=== PATIENT | male | born 1950 | race Caucasian/White ===

== ENCOUNTER 2016-07-14 20:32 | Emergency (ER) | payer OTHER ==
--- NOTE | 2016-07-14 22:07 | ED NURSING NOTES ---
Clinical Report - Nurses [facility] [place] [address] 07/14/2016 20:33 [id number] Triage time 21:Jul 14 2016. Acuity: LEVEL 3. Chief Complaint: (Facial pain, flank pain, congestion). SEPSIS SCREEN: Sepsis Screen: negative. Negative (no infection suspected/documented). ZULAY COMA SCORE: Zulay Coma Scale: 15- eyes open spontaneously (4); best verbal response- oriented x 4 (5); best motor response- obeys commands (6). --21:08 Carri Mclaughlin 21:01 07/14/16. BP: 150/92. HR: 72. RR: 18. O2 saturation: 98% on room air. Temp: 97.8 F (oral). Pain level now: 03/27. --21:08 Carri Mclaughlin. Weight: 99.7 kg stated. Height/Length: 73 inches Per Patient. BMI: 29. --21:06 Carri Mclaughlin. Medications None. --21:07 Carri Mclaughlin. Allergies Vicodin. --21:07 Carri Mclaughlin. Medication/allergy information source: the patient. --21:08 Carri Mclaughlin. History Arrived by private vehicle. Historian: patient. Accompanied by family. Primary physician (none). Onset. (1 weeks). ( Patient reports right sided facial pain, he does not know if its in his mouth or throat. He reports flank pain on his left side. He reports congestion and states he has had "the crud going around". He reports he feels terrible.). PAST MEDICAL HX: Immunizations: up-to-date. SOCIAL HX: Heavy tobacco smoker- 1 pack per day. History of drug use: marijuana. No alcohol use. No infectious disease exposure. ABUSE ASSESSMENT: No report of abuse. FALL RISK ASSESSMENT: Fall risk assessment completed. No fall risk identified. NUTRITIONAL RISK ASSESSMENT: The nutritional risk assessment revealed no deficiencies. FUNCTIONAL ASSESSMENT: Functional assessment: no impairments noted. LEARNING NEEDS ASSESSMENT: The learning needs assessment revealed no barriers. SKIN INTEGRITY ASSESSMENT: Skin integrity risk assessment completed. No skin integrity risk identified. --21: Carri Mclaughlin. PROBLEMS: Degenerative Joint Disease. Arthritis. Hypertension. --21: Carri Mclaughlin. ADDITIONAL SURGERIES: Adenoidectomy. Right foot. Right hand. Tonsillectomy. --21: Carri Mclaughlin. Interventions ID band on patient. To treatment room. --21: Carri Mclaughlin. PHYSICAL ASSESSMENT ( Extensive dental decay and broken teeth b). GENERAL / NEURO / PSYCH: Alert. Oriented X 4. Appears in no acute distress. HEENT: No facial asymmetry noted. Mucous membranes are pink. RESPIRATORY: Respirations not labored. SKIN: Skin is warm and dry. --21: Carri Mclaughlin. NURSING PROGRESS NOTES 21:07/14/16. The initial plan of care for this patient includes an assessment with efforts to address the presence of pain. This plan of care was discussed with the patient. Patient gowned. Reassurance given. Patient identifiers checked. Call light placed in reach. Side rails up x 1. Bed placed in lowest position. Brakes of bed on. --21:20 Carol Owens R.N. 22:07/14/2016 Oxycodone-APAP (Oxycodone-Acetaminophen) PO 5/325 mg Tablets 2 tab given. Allergies verified, confirmed 5 rights and sedative warning given to the patient and patient's family. --22:24 Carol Owens R.N. 22:20 07/14/2016 PEN-VEE K (Penicillin V Potassium) PO Tablets 500 mg given. Allergies verified and confirmed 5 rights. --22:24 Carol Owens R.N. 22:07/14/2016 Flexeril (Cyclobenzaprine HCl) PO Tablets 10 mg given. Allergies verified and confirmed 5 rights. --22:24 Carol Owens R.N. DISPOSITION / DISCHARGE 22:26 07/14/16. Condition at departure: improved and stable. The goals identified in the patient's plan of care were met. No learning barriers present. Discharge instructions provided and reviewed with the patient. Reviewed medication(s) side effects, precautions, dosing and course information. Prescription(s) given to the patient. Reviewed referral to a dentist and primary care physician for followup. Patient and spouse verbalized understanding. Written instructions provided in Ghanaian. The patient was discharged home and accompanied by spouse. He left the Emergency Department ambulatory and via private vehicle. Patient driving. --22:26 Carol Owens R.N. 22:25 07/14/16. BP: 146/80. HR: 88. RR: 16. O2 saturation: 100%. Temp: 98.5 F. Pain level now: 01/25. 21:01 07/14/16. BP: 150/92. HR: 72. RR: 18. O2 saturation: 98% on room air. Temp: 97.8 F (oral). Pain level now: 03/27. --22:26 Carol Owens R.N. Departure time: :Jul 14 2016. --22:26 Carol Owens R.N. Locked/Released at 07/14/2016 22:51 by Carol Owens R.N.
--- NOTE | 2016-07-14 22:07 | ED CLINICAL REPORT ---
Clinical Report - Physicians/Mid Levels [facility] [address] [place] [address] 07/14/2016 20:33 Patient: CARLEE NASH Time Seen: 21:53 Jul 14 2016. Arrived- By private vehicle. Historian- patient. CPT: ER phys charges level 3 (#932485). HISTORY OF PRESENT ILLNESS Chief Complaint: SORE THROAT and DENTAL PAIN. flank pain. 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 (1 weeks). ( Patient reports right sided facial pain, he does not know if its in his mouth or throat. He reports flank pain on his left side. He reports congestion and states he has had "the crud going around". He reports he feels terrible.). and is still present. Pain described as moderate. The patient has had jaw pain. Similar symptoms previously: None. Recent medical care: Not recently seen/assessed. REVIEW OF SYSTEMS No fever, cough, difficulty breathing, chest pain or nausea. No diarrhea, abdominal pain, difficulty with urination, fainting episodes or skin rash. No enlarged lymph nodes or vomiting. low back also hurts on the left lower lumbar area. Return for the last couple of days and hurts primarily in trying to move and get up out of bed. All systems otherwise negative, except as recorded above. PAST HISTORY Arthritis. Prior Injury, Same Area. Dental Caries. Tendonitis. Bronchitis. Fall. Contusion. Sprain. Tetanus Status. Additional Surgeries: Adenoidectomy. Right foot. Right hand. Tonsillectomy. Medications: None. Allergies: Vicodin. SOCIAL HISTORY Heavy tobacco smoker (cigarette)- less than 1 pack per day. History of drug use: marijuana. ADDITIONAL NOTES The nursing notes have been reviewed. PHYSICAL EXAM Vital Signs: 07/14/2016 21:01 BP: 150/92. HR: 72. RR: 18. O2 saturation: 98%. Temp: 97.8 F. Pain level now: 10/10. Appearance: Alert. Patient in mild distress. Head: Normal external inspection. No mandibular swelling or maxillary swelling. Eyes: Pupils equal, round and reactive to light. Conjunctivae and eyelids normal. ENT: Severe dental tenderness of a single tooth (lower right second molar). Ears normal. Nose normal. Pharynx normal. Lips normal. Gums normal. Uvula midline. Neck: Normal inspection. Trachea midline. No adenopathy. Neck supple. No lymphadenopathy or meningeal signs. CVS: Normal heart rate and rhythm. Heart sounds normal. Pulses normal. No cardiac murmur. Respiratory: No respiratory distress. Breath sounds normal. Chest nontender. Abdomen: Soft and nontender. Skin: Normal skin color. No rash. Extremities: Extremities nontender. Neuro: Oriented X 3. No motor deficit. No sensory deficit. Reflexes normal. PROGRESS AND PROCEDURES Patient/family counseled. Disposition: Discharged. Condition: stable. CLINICAL IMPRESSION Dental caries (localized) Acute and chronic lumbar back pain associated with degenerative disc disease of the lumbar spine. Motor deficit present. (Chronic weakness left leg.). No radiculopathy. INSTRUCTIONS Warnings: Further evaluation is necessary. GENERAL WARNINGS: Return or contact your physician immediately if your condition worsens or changes unexpectedly, if not improving as expected, or if other problems arise. Prescription Medications: Penicillin V 500mg: take 1 tab orally every 6 hours for 10 days. Dispense forty (40). No refill Oxycodone/APAP 5 mg/325 mg: take 1-2 tablets orally every 4 hours as needed for pain. Dispense twenty-five (25). No refill. Ibuprofen 800 mg tablets: take 1 tablet orally every 8 hours as needed for pain. Dispense thirty (30). No refills. Flexeril 10 mg: Take 1 orally every 8 hours as needed for muscle spasm. Dispense twenty (20). No refills. Substitution is permissible. Follow-up: Follow up with a dentist. Call for the next available appointment. Understanding of the discharge instructions verbalized by patient. Follow-up with: Ashkan Del Valle MD, [facility], , [facility], [address] [place] [address] Follow up in one week. Call for an appointment. (Electronically signed by Mina Zazueta MD 07/17/2016 10:31)
--- NOTE | 2016-07-14 22:07 | ED CLINICAL REPORT ---
Clinical Report - Physicians/Mid Levels [facility] [address] [place] [address] 07/14/2016 20:33 Patient: CARLEE NASH Time Seen: 21:53 Jul 14 2016. Arrived- By private vehicle. Historian- patient. CPT: ER phys charges level 3 (#[id number]). HISTORY OF PRESENT ILLNESS Chief Complaint: SORE THROAT and DENTAL PAIN. flank pain. 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 (1 weeks). ( Patient reports right sided facial pain, he does not know if its in his mouth or throat. He reports flank pain on his left side. He reports congestion and states he has had "the crud going around". He reports he feels terrible.). and is still present. Pain described as moderate. The patient has had jaw pain. Similar symptoms previously: None. Recent medical care: Not recently seen/assessed. REVIEW OF SYSTEMS No fever, cough, difficulty breathing, chest pain or nausea. No diarrhea, abdominal pain, difficulty with urination, fainting episodes or skin rash. No enlarged lymph nodes or vomiting. low back also hurts on the left lower lumbar area. Return for the last couple of days and hurts primarily in trying to move and get up out of bed. All systems otherwise negative, except as recorded above. PAST HISTORY Arthritis. Prior Injury, Same Area. Dental Caries. Tendonitis. Bronchitis. Fall. Contusion. Sprain. Tetanus Status. Additional Surgeries: Adenoidectomy. Right foot. Right hand. Tonsillectomy. Medications: None. Allergies: Vicodin. SOCIAL HISTORY Heavy tobacco smoker (cigarette)- less than 1 pack per day. History of drug use: marijuana. ADDITIONAL NOTES The nursing notes have been reviewed. PHYSICAL EXAM Vital Signs: 07/14/2016 21:01 BP: 150/92. HR: 72. RR: 18. O2 saturation: 98%. Temp: 97.8 F. Pain level now: 10/10. Appearance: Alert. Patient in mild distress. Head: Normal external inspection. No mandibular swelling or maxillary swelling. Eyes: Pupils equal, round and reactive to light. Conjunctivae and eyelids normal. ENT: Severe dental tenderness of a single tooth (lower right second molar). Ears normal. Nose normal. Pharynx normal. Lips normal. Gums normal. Uvula midline. Neck: Normal inspection. Trachea midline. No adenopathy. Neck supple. No lymphadenopathy or meningeal signs. CVS: Normal heart rate and rhythm. Heart sounds normal. Pulses normal. No cardiac murmur. Respiratory: No respiratory distress. Breath sounds normal. Chest nontender. Abdomen: Soft and nontender. Skin: Normal skin color. No rash. Extremities: Extremities nontender. Neuro: Oriented X 3. No motor deficit. No sensory deficit. Reflexes normal. PROGRESS AND PROCEDURES Patient/family counseled. Disposition: Discharged. Condition: stable. CLINICAL IMPRESSION Dental caries (localized) Acute and chronic lumbar back pain associated with degenerative disc disease of the lumbar spine. Motor deficit present. (Chronic weakness left leg.). No radiculopathy. INSTRUCTIONS Warnings: Further evaluation is necessary. GENERAL WARNINGS: Return or contact your physician immediately if your condition worsens or changes unexpectedly, if not improving as expected, or if other problems arise. Prescription Medications: Penicillin V 500mg: take 1 tab orally every 6 hours for 10 days. Dispense forty (40). No refill Oxycodone/APAP 5 mg/325 mg: take 1-2 tablets orally every 4 hours as needed for pain. Dispense twenty-five (25). No refill. Ibuprofen 800 mg tablets: take 1 tablet orally every 8 hours as needed for pain. Dispense thirty (30). No refills. Flexeril 10 mg: Take 1 orally every 8 hours as needed for muscle spasm. Dispense twenty (20). No refills. Substitution is permissible. Follow-up: Follow up with a dentist. Call for the next available appointment. Understanding of the discharge instructions verbalized by patient. Follow-up with: Ashkan Del Valle MD, [facility], , [facility], [address] [place] [address] Follow up in one week. Call for an appointment. (Electronically signed by Mina Zazueta MD 07/17/2016 10:31)
--- NOTE | 2016-07-17 10:31 | ED ORDER SUMMARY ---
..... Patient: CARLEE NASH OrderSheet [facility] VisitID: [id number] [address] [place] [address] 65y, M Registration Date/Time: 07/14/2016 ORDER SHEET Weight: 99.7 kg (stated) Allergies: Vicodin GENERAL ORDERS: MEDICATION ORDERS: Oxycodone-APAP PO 10/650 mg (NOW) (22:08 07/14/2016 Sedrick BELTRAN) (22:24 EIterrell R.N.) Pen-Vee K PO 500 mg (NOW) (22:08 07/14/2016 Sedrick BELTRAN) (22:24 EIterrell R.N.) Flexeril PO 10 mg (NOW) (22:08 07/14/2016 Sedrick BELTRAN) (22:24 EIjennerkalpesh R.N.) IV FLUIDS: ORDER SHEET NOTES: [Electronically signed by Carol Owens R.N. (22:51 07/14/2016)] [Electronically signed by Mina Zazueta MD (10:31 07/17/2016)] [Electronically locked/signed by Carol Owens R.N. (22:51 07/14/2016)]
--- NOTE | 2016-07-17 10:31 | ED MED RECONCILIATION SUMMARY ---
Patient: CARLEE NASH Medication Reconciliation Report [facility] VisitID: [id number] [address] [place] [address] 65y, M Registration Date/Time: 07/14/2016 Weight: 99.7 kg Height/Length: 73 in. BMI: 29.0 ALLERGIES: Vicodin The patient's Home Medications are listed below: NONE. The source(s) of the original Home Medication information: patient The following Medications were given to the patient in the Emergency Department: Oxycodone-APAP [PO] PO 2 tab, administered: 07/14/2016 10:20:00 PM PEN-VEE K [PO] PO 500 mg, administered: 07/14/2016 10:20:00 PM Flexeril [PO] PO 10 mg, administered: 07/14/2016 10:20:00 PM The following Medications were prescribed to the patient: Penicillin V 500mg: take 1 tab orally every 6 hours for 10 days. Dispense forty (40). No refill -- Mina Zazueta MD Oxycodone/APAP 5 mg/325 mg: take 1-2 tablets orally every 4 hours as needed for pain. Dispense twenty-five (25). No refill. -- Mina Zazueta MD Ibuprofen 800 mg tablets: take 1 tablet orally every 8 hours as needed for pain. Dispense thirty (30). No refills. -- Mina Zazueta MD Flexeril 10 mg: Take 1 orally every 8 hours as needed for muscle spasm. Dispense twenty (20). No refills. Substitution is permissible. -- Mina Zazueta MD
--- NOTE | 2016-07-17 10:31 | ED MAR SUMMARY ---
..... Medication Administration Record [facility] [address] [place] [address] Patient: CARLEE NASH Visit ID: [id number] 65y, M Weight: 99.7 kg Height/Length: 73 in BMI: 29 ALLERGIES: Vicodin Given 22:07/14/2016 Carol Owens R.N. Medication Administered: OXYCODONE-APAP [PO] (OXYCODONE-ACETAMINOPHEN), Dose: 2 tab 5/325 mg Tablets PO. Medication Ordered: Oxycodone-APAP PO 10/650 mg (NOW). Given 22:07/14/2016 Carol Owens R.N. Medication Administered: PEN-VEE K [PO] (PENICILLIN V POTASSIUM), Dose: 500 mg Tablets PO. Medication Ordered: Pen-Vee K PO 500 mg (NOW). Given 22:07/14/2016 Carol Owens R.N. Medication Administered: FLEXERIL [PO] (CYCLOBENZAPRINE HCL), Dose: 10 mg Tablets PO. Medication Ordered: Flexeril PO 10 mg (NOW).
--- NOTE | 2016-07-17 10:31 | ED DISCHARGE INSTRUCTIONS ---
Patient: CARLEE NASH General Instructions [facility] VisitID: [id number] [place] [address] 65y, M Registration Date/Time: 07/14/2016 Dental caries (localized) Acute and chronic lumbar back pain associated with degenerative disc disease of the lumbar spine. Motor deficit present. (Chronic weakness left leg.). No radiculopathy. INSTRUCTIONS Warnings: Further evaluation is necessary. GENERAL WARNINGS: Return or contact your physician immediately if your condition worsens or changes unexpectedly, if not improving as expected, or if other problems arise. Prescription Medications: Penicillin V 500mg: take 1 tab orally every 6 hours for 10 days. Dispense forty (40). No refill Oxycodone/APAP 5 mg/325 mg: take 1-2 tablets orally every 4 hours as needed for pain. Dispense twenty-five (25). No refill. Ibuprofen 800 mg tablets: take 1 tablet orally every 8 hours as needed for pain. Dispense thirty (30). No refills. Flexeril 10 mg: Take 1 orally every 8 hours as needed for muscle spasm. Dispense twenty (20). No refills. Substitution is permissible. Follow-up: Follow up with a dentist. Call for the next available appointment. Understanding of the discharge instructions verbalized by patient. Follow-up with: Ashkan Del Valle MD, [facility], , [facility], [address] [place] [address] Follow up in one week. Call for an appointment. ADDITIONAL INFORMATION Dental Cavity A dental cavity is a pit or crater in the enamel surface of the tooth. This exposes the sensitive inner layer of the tooth and causes pain. If untreated, the cavity will get bigger and may cause an infection or abscess in the root of the tooth. An infection in the tooth is a much more serious problem and may require a root canal or removal of the entire tooth. The tooth pain may be made worse by drinking hot or cold fluids. It may spread from the tooth to the ear or jaw on the same side. Home Care: Avoid hot and cold foods, and liquids since your tooth may be sensitive to temperature changes. If your tooth is chipped or cracked, or if there is a large open cavity, apply OIL OF CLOVES (available snus-wqd-tjdymjl in drug stores) directly to the tooth to reduce pain. Some pharmacies carry an zatc-gxr-cathijb "toothache kit." This contains oil of cloves and a paste, which can be applied over the exposed tooth to decrease sensitivity. An ice pack on your jaw over the sore area may help to reduce pain. You may use acetaminophen (Tylenol) or ibuprofen (Motrin, Advil) to control pain, unless another pain medicine was prescribed. [ NOTE: If you have liver disease or ever had a stomach ulcer, talk with your doctor before using these medicines.] If you have signs of an infection, an antibiotic will be given. Take it as directed. Follow-Up with your dentist as directed. Although your pain may go away with the treatment given, only a dentist can fully evaluate and treat this problem to prevent further tooth damage. Get Prompt Medical Attention if any of the following occur: Redness or swelling of the face Pain worsens or spreads to the neck Fever over 100.5 F (38C) Unusual drowsiness; headache or stiff neck; weakness or fainting Pus drains from the tooth or gum Difficulty swallowing or breathing Dental Abscess A dental abscess is an infection of the tooth socket. It often starts with a crack or cavity in the tooth. A pocket of pus forms between the tooth and the bone. The infection causes pain and swelling of the gum, cheek or jaw. The pain is often made worse by drinking hot or cold fluids, or biting on hard foods. Pain may be felt in the facial sinus or in the ear. A severe infection can interfere with swallowing and breathing. In the emergency department or clinic, you will be started on an antibiotic. However, final treatment requires drainage of the pus. This can be done by removing the tooth or performing a root canal. A root canal is done by an oral surgeon and involves drilling an opening in the tooth to drain the pus. After the infection has healed, a crown is placed over the tooth. Home care The following guidelines will help you care for your abscess at home: Avoid hot and cold foods and liquids since your tooth may be sensitive to temperature changes. If your tooth is chipped or cracked, or if there is a large open cavity, applyoil of cloves(available jchf-wrw-tmfucea in drug stores) directly to the tooth to reduce pain. Some pharmacies carry an atav-nsz-sddhaas "toothache kit". This contains oil of cloves and a paste, which can be applied over the exposed tooth to decrease sensitivity. Apply an ice pack (ice cubes in a plastic bag, wrapped in a towel) over the injured area for 20 minutes every 12 hours the first day for pain relief. Continue this 34 times a day until the pain and swelling goes away. You may use acetaminophen or ibuprofen to control pain, unless another medicine was prescribed. If you have chronic liver or kidney disease or ever had a stomach ulcer or GI bleeding, talk with your doctor before using these medicines. An antibiotic will be prescribed. Take it as directed until completed, even if you are feeling better sooner. Follow-up care Follow up as directed with a dentist or oral surgeon. Even though your pain may improve with the treatment given today, only a dentist or oral surgeon can provide full treatment for this problem. When to seek medical care Get prompt medical attention or contact your doctor if any of the following occur: Your face or eyelid becomes swollen or red Pain worsens or spreads to the neck Fever over 100.4F (38.0C) Unusual drowsiness; headache or stiff neck; weakness, or fainting Pus drains from the gum or tooth Difficulty talking, swallowing or breathing Unable to open your mouth wide Dental Pain A crack or cavity in the tooth, which exposes the sensitive inner area of the tooth can cause tooth pain. An infection in the gum or the root of the tooth can cause pain and swelling. The pain is often made worse by drinking hot or cold fluids, or biting on hard foods. Pain may spread from the tooth to the ear or jaw on the same side. Home Care: Avoid hot and cold foods and liquids since your tooth may be sensitive to temperature changes. If your tooth is chipped or cracked, or if there is a large open cavity, apply OIL OF CLOVES (available llgk-cfa-ruzbacu in drug stores) directly to the tooth to reduce pain. Some pharmacies carry an nxha-vpp-elkctkr "toothache kit." This contains a paste, which can be applied over the exposed tooth to decrease sensitivity. A cold pack on your jaw over the sore area may help reduce pain. You may use acetaminophen (Tylenol) or ibuprofen (Motrin, Advil) to control pain, unless another medicine was prescribed. [ NOTE: If you have chronic liver or kidney disease or ever had a stomach ulcer or GI bleeding, talk with your doctor before using these medicines.] If you have signs of an infection, an antibiotic will be given. Take it as directed. Follow-Up as directed with a dentist. Your pain may go away with the treatment given. However, only a dentist can fully evaluate and treat the cause and prevent the pain from coming back again. TOOTHACHE IS A SIGN OF DISEASE IN YOUR TOOTH AND SHOULD BE EXAMINED AND TREATED BY A DENTIST. Get Prompt Medical Attention if any of the following occur: Your face becomes swollen or red Pain worsens or spreads to the neck Fever over 100.4 F (38.0 C) Unusual drowsiness; headache or stiff neck; weakness or fainting Pus drains from the tooth Difficulty swallowing or breathing Back Pain [Acute Or Chronic] Back pain is usually caused by an injury to the muscles or ligaments of the spine. Sometimes the disks that separate each bone in the spine may bulge and cause pain by pressing on a nearby nerve. Back pain may also appear after a sudden twisting/bending force (such as in a car accident), after a simple awkward movement, or lifting something heavy with poor body positioning. In either case, muscle spasm is often present and adds to the pain. Acute back pain usually gets better in one to two weeks. Back pain related to disk disease, arthritis in the spinal joints or spinal stenosis (narrowing of the spinal canal) can become chronic and last for months or years. Unless you had a physical injury (for example, a car accident or fall) X-rays are usually not ordered for the initial evaluation of back pain. If pain continues and does not respond to medical treatment, x-rays and other tests may be performed at a later time. Home Care: You may need to stay in bed the first few days. But, as soon as possible, begin sitting or walking to avoid problems with prolonged bed rest (muscle weakness, worsening back stiffness and pain, blood clots in the legs). When in bed, try to find a position of comfort. A firm mattress is best. Try lying flat on your back with pillows under your knees. You can also try lying on your side with your knees bent up towards your chest and a pillow between your knees. Avoid prolonged sitting. This puts more stress on the lower back than standing or walking. During the first two days after injury, apply an ICE PACK to the painful area for 20 minutes every 2-4 hours. This will reduce swelling and pain. HEAT (hot shower, hot bath or heating pad) works well for muscle spasm. You can start with ice, then switch to heat after two days. Some patients feel best alternating ice and heat treatments. Use the one method that feels the best to you. You may use acetaminophen (Tylenol) or ibuprofen (Motrin, Advil) to control pain, unless another pain medicine was prescribed. [NOTE: If you have chronic liver or kidney disease or ever had a stomach ulcer or GI bleeding, talk with your doctor before using these medicines.] Be aware of safe lifting methods and do not lift anything over 15 pounds until all the pain is gone. Follow Up with your doctor or this facility if your symptoms do not start to improve after one week. Physical therapy may be needed. [NOTE: If X-rays were taken, they will be reviewed by a radiologist. You will be notified of any new findings that may affect your care.] Get Prompt Medical Attention if any of the following occur: Pain becomes worse or spreads to your legs Weakness or numbness in one or both legs Loss of bowel or bladder control Numbness in the groin or genital area Oxycodone Hydrochloride, Acetaminophen Oral tablet What is this medicine? ACETAMINOPHEN; OXYCODONE (a set a KRISTINE debby fen; ox i KOE done) is a pain reliever. It is used to treat mild to moderate pain. How should I use this medicine? Take this medicine by mouth with a full glass of water. Follow the directions on the prescription label. Take your medicine at regular intervals. Do not take your medicine more often than directed. Talk to your granite polisher apprentice regarding the use of this medicine in children. Special care may be needed. Patients over 65 years old may have a stronger reaction and need a smaller dose. What side effects may I notice from receiving this medicine? Side effects that you should report to your doctor or health care analyst as soon as possible: allergic reactions like skin rash, itching or hives, swelling of the face, lips, or tongue breathing difficulties, wheezing confusion light headedness or fainting spells severe stomach pain yellowing of the skin or the whites of the eyes Side effects that usually do not require medical attention (report to your doctor or health care analyst if they continue or are bothersome): dizziness drowsiness nausea vomiting What may interact with this medicine? alcohol antihistamines barbiturates like amobarbital, butalbital, butabarbital, methohexital, pentobarbital, phenobarbital, thiopental, and secobarbital benztropine drugs for bladder problems like solifenacin, trospium, oxybutynin, tolterodine, hyoscyamine, and methscopolamine drugs for breathing problems like ipratropium and tiotropium drugs for certain stomach or intestine problems like propantheline, homatropine methylbromide, glycopyrrolate, atropine, belladonna, and dicyclomine general anesthetics like etomidate, ketamine, nitrous oxide, propofol, desflurane, enflurane, halothane, isoflurane, and sevoflurane medicines for depression, anxiety, or psychotic disturbances medicines for sleep muscle relaxants naltrexone narcotic medicines (opiates) for pain phenothiazines like perphenazine, thioridazine, chlorpromazine, mesoridazine, fluphenazine, prochlorperazine, promazine, and trifluoperazine scopolamine tramadol trihexyphenidyl What if I miss a dose? If you miss a dose, take it as soon as you can. If it is almost time for your next dose, take only that dose. Do not take double or extra doses. Where should I keep my medicine? Keep out of the reach of children. This medicine can be abused. Keep your medicine in a safe place to protect it from theft. Do not share this medicine with anyone. Selling or giving away this medicine is dangerous and against the law. Store at room temperature between 20 and 25 degrees C (68 and 77 degrees F). Keep container tightly closed. Protect from light. This medicine may cause accidental overdose and if it is taken by other adults, children, or pets. Flush any unused medicine down the toilet to reduce the chance of harm. Do not use the medicine after the expiration date. What should I tell my health care provider before I take this medicine? They need to know if you have any of these conditions: brain tumor Crohn's disease, inflammatory bowel disease, or ulcerative colitis drink more than 3 alcohol containing drinks per day drug abuse or addiction head injury heart or circulation problems kidney disease or problems going to the bathroom liver disease lung disease, asthma, or breathing problems an unusual or allergic reaction to acetaminophen, oxycodone, other opioid analgesics, other medicines, foods, dyes, or preservatives or trying to get breast-feeding What should I watch for while using this medicine? Tell your doctor or health care analyst if your pain does not go away, if it gets worse, or if you have new or a different type of pain. You may develop tolerance to the medicine. Tolerance means that you will need a higher dose of the medication for pain relief. Tolerance is normal and is expected if you take this medicine for a long time. Do not suddenly stop taking your medicine because you may develop a severe reaction. Your body becomes used to the medicine. This does NOT mean you are addicted. Addiction is a behavior related to getting and using a drug for a non-medical reason. If you have pain, you have a medical reason to take pain medicine. Your doctor will tell you how much medicine to take. If your doctor wants you to stop the medicine, the dose will be slowly lowered over time to avoid any side effects. You may get drowsy or dizzy. Do not drive, use machinery, or do anything that needs mental alertness until you know how this medicine affects you. Do not stand or sit up quickly, especially if you are an older patient. This reduces the risk of dizzy or fainting spells. Alcohol may interfere with the effect of this medicine. Avoid alcoholic drinks. There are different types of narcotic medicines (opiates) for pain. If you take more than one type at the same time, you may have more side effects. Give your health care provider a list of all medicines you use. Your doctor will tell you how much medicine to take. Do not take more medicine than directed. Call emergency for help if you have problems breathing. The medicine will cause constipation. Try to have a bowel movement at least every 2 to 3 days. If you do not have a bowel movement for 3 days, call your doctor or health care analyst. Do not take Tylenol (acetaminophen) or medicines that have acetaminophen with this medicine. Too much acetaminophen can be very dangerous. Many nonprescription medicines contain acetaminophen. Always read the labels carefully to avoid taking more acetaminophen. You have been given the following additional information: Dental Cavity Tooth Abscess Dental Pain Back Pain (Acute Or Chronic) Oxycodone Hydrochloride, Acetaminophen Oral tablet (Electronically signed by Mina Zazueta MD 07/17/2016 10:31)
--- NOTE | 2016-07-17 10:31 | ED MAR SUMMARY ---
..... Medication Administration Record [facility] [address] [place] [address] Patient: CARLEE NASH Visit ID: [id number] 65y, M Weight: 99.7 kg Height/Length: 73 in BMI: 29 ALLERGIES: Vicodin Given 22:07/14/2016 Carol Owens R.N. Medication Administered: OXYCODONE-APAP [PO] (OXYCODONE-ACETAMINOPHEN), Dose: 2 tab 5/325 mg Tablets PO. Medication Ordered: Oxycodone-APAP PO 10/650 mg (NOW). Given 22:07/14/2016 Carol Owens R.N. Medication Administered: PEN-VEE K [PO] (PENICILLIN V POTASSIUM), Dose: 500 mg Tablets PO. Medication Ordered: Pen-Vee K PO 500 mg (NOW). Given 22:07/14/2016 Carol Owens R.N. Medication Administered: FLEXERIL [PO] (CYCLOBENZAPRINE HCL), Dose: 10 mg Tablets PO. Medication Ordered: Flexeril PO 10 mg (NOW).
--- NOTE | 2016-07-17 10:31 | ED DISCHARGE INSTRUCTIONS ---
Patient: CARLEE NASH General Instructions [facility] VisitID: [id number] [place] [address] 65y, M Registration Date/Time: 07/14/2016 Dental caries (localized) Acute and chronic lumbar back pain associated with degenerative disc disease of the lumbar spine. Motor deficit present. (Chronic weakness left leg.). No radiculopathy. INSTRUCTIONS Warnings: Further evaluation is necessary. GENERAL WARNINGS: Return or contact your physician immediately if your condition worsens or changes unexpectedly, if not improving as expected, or if other problems arise. Prescription Medications: Penicillin V 500mg: take 1 tab orally every 6 hours for 10 days. Dispense forty (40). No refill Oxycodone/APAP 5 mg/325 mg: take 1-2 tablets orally every 4 hours as needed for pain. Dispense twenty-five (25). No refill. Ibuprofen 800 mg tablets: take 1 tablet orally every 8 hours as needed for pain. Dispense thirty (30). No refills. Flexeril 10 mg: Take 1 orally every 8 hours as needed for muscle spasm. Dispense twenty (20). No refills. Substitution is permissible. Follow-up: Follow up with a dentist. Call for the next available appointment. Understanding of the discharge instructions verbalized by patient. Follow-up with: Ashkan Del Valle MD, [facility], , [facility], [address] [place] [address] Follow up in one week. Call for an appointment. ADDITIONAL INFORMATION Dental Cavity A dental cavity is a pit or crater in the enamel surface of the tooth. This exposes the sensitive inner layer of the tooth and causes pain. If untreated, the cavity will get bigger and may cause an infection or abscess in the root of the tooth. An infection in the tooth is a much more serious problem and may require a root canal or removal of the entire tooth. The tooth pain may be made worse by drinking hot or cold fluids. It may spread from the tooth to the ear or jaw on the same side. Home Care: Avoid hot and cold foods, and liquids since your tooth may be sensitive to temperature changes. If your tooth is chipped or cracked, or if there is a large open cavity, apply OIL OF CLOVES (available rgia-tht-csrtmrk in drug stores) directly to the tooth to reduce pain. Some pharmacies carry an lpma-mpq-cifghfk "toothache kit." This contains oil of cloves and a paste, which can be applied over the exposed tooth to decrease sensitivity. An ice pack on your jaw over the sore area may help to reduce pain. You may use acetaminophen (Tylenol) or ibuprofen (Motrin, Advil) to control pain, unless another pain medicine was prescribed. [ NOTE: If you have liver disease or ever had a stomach ulcer, talk with your doctor before using these medicines.] If you have signs of an infection, an antibiotic will be given. Take it as directed. Follow-Up with your dentist as directed. Although your pain may go away with the treatment given, only a dentist can fully evaluate and treat this problem to prevent further tooth damage. Get Prompt Medical Attention if any of the following occur: Redness or swelling of the face Pain worsens or spreads to the neck Fever over 100.5 F (38C) Unusual drowsiness; headache or stiff neck; weakness or fainting Pus drains from the tooth or gum Difficulty swallowing or breathing Dental Abscess A dental abscess is an infection of the tooth socket. It often starts with a crack or cavity in the tooth. A pocket of pus forms between the tooth and the bone. The infection causes pain and swelling of the gum, cheek or jaw. The pain is often made worse by drinking hot or cold fluids, or biting on hard foods. Pain may be felt in the facial sinus or in the ear. A severe infection can interfere with swallowing and breathing. In the emergency department or clinic, you will be started on an antibiotic. However, final treatment requires drainage of the pus. This can be done by removing the tooth or performing a root canal. A root canal is done by an oral surgeon and involves drilling an opening in the tooth to drain the pus. After the infection has healed, a crown is placed over the tooth. Home care The following guidelines will help you care for your abscess at home: Avoid hot and cold foods and liquids since your tooth may be sensitive to temperature changes. If your tooth is chipped or cracked, or if there is a large open cavity, applyoil of cloves(available qthl-khj-wqkhfjw in drug stores) directly to the tooth to reduce pain. Some pharmacies carry an xcus-bef-cqsawgl "toothache kit". This contains oil of cloves and a paste, which can be applied over the exposed tooth to decrease sensitivity. Apply an ice pack (ice cubes in a plastic bag, wrapped in a towel) over the injured area for 20 minutes every 12 hours the first day for pain relief. Continue this 34 times a day until the pain and swelling goes away. You may use acetaminophen or ibuprofen to control pain, unless another medicine was prescribed. If you have chronic liver or kidney disease or ever had a stomach ulcer or GI bleeding, talk with your doctor before using these medicines. An antibiotic will be prescribed. Take it as directed until completed, even if you are feeling better sooner. Follow-up care Follow up as directed with a dentist or oral surgeon. Even though your pain may improve with the treatment given today, only a dentist or oral surgeon can provide full treatment for this problem. When to seek medical care Get prompt medical attention or contact your doctor if any of the following occur: Your face or eyelid becomes swollen or red Pain worsens or spreads to the neck Fever over 100.4F (38.0C) Unusual drowsiness; headache or stiff neck; weakness, or fainting Pus drains from the gum or tooth Difficulty talking, swallowing or breathing Unable to open your mouth wide Dental Pain A crack or cavity in the tooth, which exposes the sensitive inner area of the tooth can cause tooth pain. An infection in the gum or the root of the tooth can cause pain and swelling. The pain is often made worse by drinking hot or cold fluids, or biting on hard foods. Pain may spread from the tooth to the ear or jaw on the same side. Home Care: Avoid hot and cold foods and liquids since your tooth may be sensitive to temperature changes. If your tooth is chipped or cracked, or if there is a large open cavity, apply OIL OF CLOVES (available efgt-mdx-yrjvifk in drug stores) directly to the tooth to reduce pain. Some pharmacies carry an jjej-vbo-nlxmdhk "toothache kit." This contains a paste, which can be applied over the exposed tooth to decrease sensitivity. A cold pack on your jaw over the sore area may help reduce pain. You may use acetaminophen (Tylenol) or ibuprofen (Motrin, Advil) to control pain, unless another medicine was prescribed. [ NOTE: If you have chronic liver or kidney disease or ever had a stomach ulcer or GI bleeding, talk with your doctor before using these medicines.] If you have signs of an infection, an antibiotic will be given. Take it as directed. Follow-Up as directed with a dentist. Your pain may go away with the treatment given. However, only a dentist can fully evaluate and treat the cause and prevent the pain from coming back again. TOOTHACHE IS A SIGN OF DISEASE IN YOUR TOOTH AND SHOULD BE EXAMINED AND TREATED BY A DENTIST. Get Prompt Medical Attention if any of the following occur: Your face becomes swollen or red Pain worsens or spreads to the neck Fever over 100.4 F (38.0 C) Unusual drowsiness; headache or stiff neck; weakness or fainting Pus drains from the tooth Difficulty swallowing or breathing Back Pain [Acute Or Chronic] Back pain is usually caused by an injury to the muscles or ligaments of the spine. Sometimes the disks that separate each bone in the spine may bulge and cause pain by pressing on a nearby nerve. Back pain may also appear after a sudden twisting/bending force (such as in a car accident), after a simple awkward movement, or lifting something heavy with poor body positioning. In either case, muscle spasm is often present and adds to the pain. Acute back pain usually gets better in one to two weeks. Back pain related to disk disease, arthritis in the spinal joints or spinal stenosis (narrowing of the spinal canal) can become chronic and last for months or years. Unless you had a physical injury (for example, a car accident or fall) X-rays are usually not ordered for the initial evaluation of back pain. If pain continues and does not respond to medical treatment, x-rays and other tests may be performed at a later time. Home Care: You may need to stay in bed the first few days. But, as soon as possible, begin sitting or walking to avoid problems with prolonged bed rest (muscle weakness, worsening back stiffness and pain, blood clots in the legs). When in bed, try to find a position of comfort. A firm mattress is best. Try lying flat on your back with pillows under your knees. You can also try lying on your side with your knees bent up towards your chest and a pillow between your knees. Avoid prolonged sitting. This puts more stress on the lower back than standing or walking. During the first two days after injury, apply an ICE PACK to the painful area for 20 minutes every 2-4 hours. This will reduce swelling and pain. HEAT (hot shower, hot bath or heating pad) works well for muscle spasm. You can start with ice, then switch to heat after two days. Some patients feel best alternating ice and heat treatments. Use the one method that feels the best to you. You may use acetaminophen (Tylenol) or ibuprofen (Motrin, Advil) to control pain, unless another pain medicine was prescribed. [NOTE: If you have chronic liver or kidney disease or ever had a stomach ulcer or GI bleeding, talk with your doctor before using these medicines.] Be aware of safe lifting methods and do not lift anything over 15 pounds until all the pain is gone. Follow Up with your doctor or this facility if your symptoms do not start to improve after one week. Physical therapy may be needed. [NOTE: If X-rays were taken, they will be reviewed by a radiologist. You will be notified of any new findings that may affect your care.] Get Prompt Medical Attention if any of the following occur: Pain becomes worse or spreads to your legs Weakness or numbness in one or both legs Loss of bowel or bladder control Numbness in the groin or genital area Oxycodone Hydrochloride, Acetaminophen Oral tablet What is this medicine? ACETAMINOPHEN; OXYCODONE (a set a KRISTINE debby fen; ox i KOE done) is a pain reliever. It is used to treat mild to moderate pain. How should I use this medicine? Take this medicine by mouth with a full glass of water. Follow the directions on the prescription label. Take your medicine at regular intervals. Do not take your medicine more often than directed. Talk to your chief security officer regarding the use of this medicine in children. Special care may be needed. Patients over 65 years old may have a stronger reaction and need a smaller dose. What side effects may I notice from receiving this medicine? Side effects that you should report to your doctor or health youth career specialist as soon as possible: allergic reactions like skin rash, itching or hives, swelling of the face, lips, or tongue breathing difficulties, wheezing confusion light headedness or fainting spells severe stomach pain yellowing of the skin or the whites of the eyes Side effects that usually do not require medical attention (report to your doctor or health youth career specialist if they continue or are bothersome): dizziness drowsiness nausea vomiting What may interact with this medicine? alcohol antihistamines barbiturates like amobarbital, butalbital, butabarbital, methohexital, pentobarbital, phenobarbital, thiopental, and secobarbital benztropine drugs for bladder problems like solifenacin, trospium, oxybutynin, tolterodine, hyoscyamine, and methscopolamine drugs for breathing problems like ipratropium and tiotropium drugs for certain stomach or intestine problems like propantheline, homatropine methylbromide, glycopyrrolate, atropine, belladonna, and dicyclomine general anesthetics like etomidate, ketamine, nitrous oxide, propofol, desflurane, enflurane, halothane, isoflurane, and sevoflurane medicines for depression, anxiety, or psychotic disturbances medicines for sleep muscle relaxants naltrexone narcotic medicines (opiates) for pain phenothiazines like perphenazine, thioridazine, chlorpromazine, mesoridazine, fluphenazine, prochlorperazine, promazine, and trifluoperazine scopolamine tramadol trihexyphenidyl What if I miss a dose? If you miss a dose, take it as soon as you can. If it is almost time for your next dose, take only that dose. Do not take double or extra doses. Where should I keep my medicine? Keep out of the reach of children. This medicine can be abused. Keep your medicine in a safe place to protect it from theft. Do not share this medicine with anyone. Selling or giving away this medicine is dangerous and against the law. Store at room temperature between 20 and 25 degrees C (68 and 77 degrees F). Keep container tightly closed. Protect from light. This medicine may cause accidental overdose and if it is taken by other adults, children, or pets. Flush any unused medicine down the toilet to reduce the chance of harm. Do not use the medicine after the expiration date. What should I tell my health care provider before I take this medicine? They need to know if you have any of these conditions: brain tumor Crohn's disease, inflammatory bowel disease, or ulcerative colitis drink more than 3 alcohol containing drinks per day drug abuse or addiction head injury heart or circulation problems kidney disease or problems going to the bathroom liver disease lung disease, asthma, or breathing problems an unusual or allergic reaction to acetaminophen, oxycodone, other opioid analgesics, other medicines, foods, dyes, or preservatives or trying to get breast-feeding What should I watch for while using this medicine? Tell your doctor or health youth career specialist if your pain does not go away, if it gets worse, or if you have new or a different type of pain. You may develop tolerance to the medicine. Tolerance means that you will need a higher dose of the medication for pain relief. Tolerance is normal and is expected if you take this medicine for a long time. Do not suddenly stop taking your medicine because you may develop a severe reaction. Your body becomes used to the medicine. This does NOT mean you are addicted. Addiction is a behavior related to getting and using a drug for a non-medical reason. If you have pain, you have a medical reason to take pain medicine. Your doctor will tell you how much medicine to take. If your doctor wants you to stop the medicine, the dose will be slowly lowered over time to avoid any side effects. You may get drowsy or dizzy. Do not drive, use machinery, or do anything that needs mental alertness until you know how this medicine affects you. Do not stand or sit up quickly, especially if you are an older patient. This reduces the risk of dizzy or fainting spells. Alcohol may interfere with the effect of this medicine. Avoid alcoholic drinks. There are different types of narcotic medicines (opiates) for pain. If you take more than one type at the same time, you may have more side effects. Give your health care provider a list of all medicines you use. Your doctor will tell you how much medicine to take. Do not take more medicine than directed. Call emergency for help if you have problems breathing. The medicine will cause constipation. Try to have a bowel movement at least every 2 to 3 days. If you do not have a bowel movement for 3 days, call your doctor or health youth career specialist. Do not take Tylenol (acetaminophen) or medicines that have acetaminophen with this medicine. Too much acetaminophen can be very dangerous. Many nonprescription medicines contain acetaminophen. Always read the labels carefully to avoid taking more acetaminophen. You have been given the following additional information: Dental Cavity Tooth Abscess Dental Pain Back Pain (Acute Or Chronic) Oxycodone Hydrochloride, Acetaminophen Oral tablet (Electronically signed by Mina Zazueta MD 07/17/2016 10:31)
--- NOTE | 2016-07-17 10:31 | ED ORDER SUMMARY ---
..... Patient: CARLEE NASH OrderSheet [facility] VisitID: [id number] [address] [place] [address] 65y, M Registration Date/Time: 07/14/2016 ORDER SHEET Weight: 99.7 kg (stated) Allergies: Vicodin GENERAL ORDERS: MEDICATION ORDERS: Oxycodone-APAP PO 10/650 mg (NOW) (22:08 07/14/2016 Sedrick BELTRAN) (22:24 EIterrell R.N.) Pen-Vee K PO 500 mg (NOW) (22:08 07/14/2016 Sedrick BELTRAN) (22:24 EIterrell R.N.) Flexeril PO 10 mg (NOW) (22:08 07/14/2016 Sedrick BELTRAN) (22:24 EIjennerkalpesh R.N.) IV FLUIDS: ORDER SHEET NOTES: [Electronically signed by Carol Owens R.N. (22:51 07/14/2016)] [Electronically signed by Mina Zazueta MD (10:31 07/17/2016)] [Electronically locked/signed by Carol Owens R.N. (22:51 07/14/2016)]
--- NOTE | 2016-07-17 10:31 | ED MED RECONCILIATION SUMMARY ---
Patient: CARLEE NASH Medication Reconciliation Report [facility] VisitID: [id number] [address] [place] [address] 65y, M Registration Date/Time: 07/14/2016 Weight: 99.7 kg Height/Length: 73 in. BMI: 29.0 ALLERGIES: Vicodin The patient's Home Medications are listed below: NONE. The source(s) of the original Home Medication information: patient The following Medications were given to the patient in the Emergency Department: Oxycodone-APAP [PO] PO 2 tab, administered: 07/14/2016 10:20:00 PM PEN-VEE K [PO] PO 500 mg, administered: 07/14/2016 10:20:00 PM Flexeril [PO] PO 10 mg, administered: 07/14/2016 10:20:00 PM The following Medications were prescribed to the patient: Penicillin V 500mg: take 1 tab orally every 6 hours for 10 days. Dispense forty (40). No refill -- Mina Zazueta MD Oxycodone/APAP 5 mg/325 mg: take 1-2 tablets orally every 4 hours as needed for pain. Dispense twenty-five (25). No refill. -- Mina Zazueta MD Ibuprofen 800 mg tablets: take 1 tablet orally every 8 hours as needed for pain. Dispense thirty (30). No refills. -- Mina Zazueta MD Flexeril 10 mg: Take 1 orally every 8 hours as needed for muscle spasm. Dispense twenty (20). No refills. Substitution is permissible. -- Mina Zazueta MD
== END 2016-07-14 22:26 | disposition home or self-care (01) ==
LOC: ED SRH 20:32
DX: M51.36 Other intervertebral disc degeneration, lumbar region (principal); K02.9 Dental caries, unspecified; M62.81 Muscle weakness (generalized); M54.5 Low back pain; G89.29 Other chronic pain; I10 Essential (primary) hypertension; F17.210 Nicotine dependence, cigarettes, uncomplicated; Z88.5 Allergy status to narcotic agent